=== PATIENT | male | born 1980 | race Caucasian/White ===

== ENCOUNTER 2021-11-09 17:02 | Emergency (ER) | payer OTHER, SELFPAY ==
[2021-11-09 17:16] VITALS: BP 127/82; PULSE 76; RESP 16; TEMP 36.5; O2SAT 96; BMI 32.9
--- NOTE | 2021-11-09 21:44 | ED_ITS ---
HPI - General Adult General Chief complaint: Back Pain/Injury Stated complaint: back/leg pain Time Seen by Provider: 11/09/21 21:44 Source: patient and translator interpreter Mode of arrival: ambulatory Limitations: no limitations History of Present Illness HPI narrative: 40-year-old male came in for evaluation of bilateral knee pain and burning. 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 Patient declined any fever chills. Patient also been complaining of a mild back pain, no urinary incontinence, no radiation of the pain to the lower extremities. Related Data Previous Rx's Medication Instructions Recorded bacitracin 500 unit/gram topical 1 appl topical TID #28 grams 11/09/21 ointment ibuprofen 600 mg tablet 600 mg PO TID PRN pain #20 tabs 11/09/21 Allergies Allergy/AdvReac Type Severity Reaction Status Date / Time No Known Allergies Allergy Verified 11/09/21 21:52 Review of Systems Review of Systems: All other systems are reviewed and are negative Constitutional: Reports as per HPI and Reports no additional constitutional complaints Eyes: Reports as per HPI and Reports no additional eye complaints Reports system reviewed and no additional complaints, except as documented Cardiovascular: Reports as per HPI and Reports no additional cardiovascular complaints Respiratory: Reports as per HPI and Reports no additional respiratory complaints Gastrointestinal: Reports as per HPI and Reports no additional gastrointestinal complaints Genitourinary: Reports no additional female genitourinary complaints Musculoskeletal: Reports no additional musculoskeletal complaints Skin/Breast: Reports system reviewed and no additional complaints, except as docu Psychiatric: Reports no additional psychiatric complaints Endocrine: Reports no additional endocrine complaints Hematologic/Lymphatic: Reports no additional hematologic/lymphatic complaints Allergic/Immunologic: Reports no additional allergic/immunologic complaints Reports system reviewed and no additional complaints, except as documented and Reports Abnormal speech present Physical Exam ED Vital Signs: Vital Signs - 24 hr 11/09/21 17:16 Temperature 97.7 F Pulse Rate 76 Respiratory Rate 16 Blood Pressure 127/82 Pulse Oximetry 96 Oxygen Delivery Method Room Air BMI result Body Mass Index 32.9 Vital signs have been reviewed as appeared to be correct. Blood pressure normal. Heart rate normal. Respiration rate normal. Temperature normal. Oxygen saturation normal. Appearance: Alert. Oriented X3. No acute distress. Head: Normal external exam. Normocephalic. Atraumatic. No Lopez signs noted. No raccoon eyes noted Eyes: PERRLA. EOMI. Conjunctiva and sclera normal. Eyelids normal. ENT: TM's Normal. Pharynx normal. Uvula midline. Moist mucous membranes. No trismus noted. No drooling noted. No muffled voice noted. Neck: Normal inspection. Neck supple. FROM. No adenopathy. Thyroid Normal. No meningeal signs. No neck mass noted. CVS: Normal heart rate and rhythm. Heart sound normal. No murmurs noted. Pulses normal throughout. Respiratory: No respiratory distress. Painless inspiration. Breath sounds normal. No wheezes/rales/rhonchi noted. Chest nontender. No accessory muscle u rigoberto noted or decreased air movement noted. Abdomen: Soft and nontender. Bowel sounds normal in all 4 quadrants. No distention noted. No organomegaly noted. No visible injury noted. Back: No CVA tenderness. Full range of motion noted. Skin: Skin warm and dry. Normal skin color. Normal skin turgor. No rashes/lesions/lacerations noted. Extremities: Bilateral superficial burn to both knees, no discharge, no fluctuation. Neuro: Oriented X 3. Cranial nerve exam: II-XII are grossly intact No motor deficit. No sensory deficit. Reflexes normal. Course Course Course Narrative: Assessment and plan. A bilateral superficial chemical eduardo on bilateral knees area, no blistering. As discussed with the patient apply bacitracin 3 times a day and use NSAIDs for pain. Discharge Plan Discharge Clinical Impression: Chemical burn Patient Disposition: Home, Self-Care Instructions: Chemical Skin Burn (ED) Prescriptions: New bacitracin 500 unit/gram ointment 1 appl topical TID Qty: 28 1RF ibuprofen 600 mg tablet 600 mg PO TID PRN (Reason: pain) Qty: 20 0RF Referrals: Physician,Unknown J [Primary Care Provider] - Stand Alone Forms: Work/School Release
[2021-11-09 22:47] VITALS: PULSE 78; RESP 18
--- NOTE | 2021-11-09 22:48 | PC.NURSE ---
bilateral lower extremity chemical eduardo present, bacitracin applied, covered with nonadhereant dressing. wrapped with kerlex
== END 2021-11-09 22:51 | disposition home or self-care (01) ==
PROVIDERS: Emergency Provider Emergency Medicine
DX: M54.50 Low back pain, unspecified (principal); M79.605 Pain in left leg; M79.604 Pain in right leg; Z79.899 Other long term (current) drug therapy
CPT/HCPCS: 99283; 99284

== ENCOUNTER 2024-06-07 20:08 | Emergency (ER) | payer SELFPAY ==
[2024-06-07 20:11] VITALS: BP 134/87; PULSE 107; RESP 20; TEMP 36.3; O2SAT 100; BMI 34.0
--- NOTE | 2024-06-07 20:14 | ED_ITS ---
HPI - General Adult General Chief complaint: Nausea/Vomiting/Diarrhea Stated complaint: vomiting Time Seen by Provider: 06/07/24 23:09 Source: patient, family and transport coordinator Mode of arrival: ambulatory Limitations: no limitations History of Present Illness ED Provider: BRIANA HPI narrative: 43 yo male with no PMH here with c/o abrupt onset abdominal cramps and n/v/d not feeling well. His son has the same illness. No recent travel or food exposures. Patient denies abx use. He cannot keep anything down. NO GIB symptoms reported. MD complaint: n/v/d Onset (ago): hour(s) (several) Location: abdomen Radiation: non-radiation Severity: moderate Quality: aching Pain Consistency: intermittent Relieving factors: none Exacerbating factors: eating Associated symptoms: loss of appetite, malaise and nausea/vomiting Treatments prior to arrival: none Related Data Previous Rx's ?Medication ?Instructions ?Recorded bacitracin 500 unit/gram topical 1 appl topical TID #28 grams 11/09/21 ointment ibuprofen 600 mg tablet 600 mg PO TID PRN pain #20 tabs 11/09/21 ondansetron 4 mg disintegrating 4 mg PO Q8H PRN nausea and 06/08/24 tablet vomiting #20 tabs Allergies Allergy/AdvReac Type Severity Reaction Status Date / Time No Known Allergies Allergy Verified 06/07/24 20:12 Review of Systems 2 Review of Systems: Constitutional : No Weight loss, No Fever, No Chills ENT/Mouth : No sore throat, No Rhinorrhea Eyes: No Swelling, No Redness Cardiovascular : No Chest Pain, No SOB, NoEdema Respiratory : No Cough, No Sputum, No Wheezing Gastrointestinal : Positive Nausea, Positive Vomiting, positive Diarrhea, positive abdominal Pain, No Hematochezia, No Melena Genitourinary : No Dysuria, No Urinary Frequency, No Hematuria, No Urgency Musculoskeletal : No joint pain, No Myalgias, No Joint Swelling Skin : No Skin Lesions, No rash Neuro : No Weakness, No Numbness, No Dizziness, No Headache Psych : No Anxiety/Panic, No Depression All other systems reviewed and are negative. [facility] Past Medical History Attestation statement: The following information was validated with the patient. Source: old records reviewed Medical History No pertinent past medical history Social History Social History (Updated 06/08/24 @ 00:17 by Leatha Ma DO) Patient Tobacco Use Status: Never used Tobacco Smoked in Last 30 Days: No Use of substances other than those prescribed or required for medical reasons: No Advance Directives: No Advance Directives Information Provided: No Physical Exam ED Vital Signs: Vital Signs - 24 hr 06/07/24 20:11 06/08/24 01:00 06/08/24 01:11 Temperature 97.3 F 98.1 F 98.1 F Pulse Rate 107 H 97 97 Respiratory Rate 20 16 16 Blood Pressure 134/87 116/58 L 116/58 L Pulse Oximetry 100 97 97 Oxygen Delivery Method Room Air Room Air Room Air BMI result Body Mass Index 34.0 Appearance: Alert. Oriented X3. No acute distress. Eyes: Pupils equal, round and reactive to light. ENT: Pharynx normal. Neck: Normal inspection. Neck supple. CVS: Normal heart rate and rhythm. Pulses normal. Respiratory: No respiratory distress. Breath sounds normal. Abdomen: Soft and very mild diffuse ttp no rebound or guarding Skin: Skin warm and dry. Normal skin color. Normal skin turgor. Extremities: No lower extremity edema. No calf ttp Neuro: Oriented X 3. No motor deficit. No sensory deficit. CN2-12 intact Course Course Course Narrative: RME: 43-year-old male presents to ED presents to the ED for vomiting abdominal pain diarrhea. Patient states his son history tenderness with normal varus and now he is having symptoms which began today. Labs Zofran ordered. Medications Administered Discontinued Medications Generic Name Dose Route Start Last Admin Trade Name Freq PRN Reason Stop Dose Admin Diphenhydramine HCl 25 mg 06/07/24 23:10 06/07/24 23:38 Diphenhydramine Hcl 50 Mg/Ml Vial IVPUSH 06/07/24 23:11 25 mg ONCE ONE Administration Lactated Ringer's 1,000 mls @ 999 mls/hr 06/07/24 23:10 06/08/24 01:00 Lr IV 06/08/24 00:10 Infused .Q1H1M ONE Infusion Ketorolac Tromethamine 15 mg 06/07/24 23:10 06/07/24 23:37 Ketorolac Tromethamine 15 Mg/Ml Vial IVPUSH 06/07/24 23:11 15 mg ONCE ONE Administration Metoclopramide HCl 10 mg 06/07/24 23:10 06/07/24 23:37 Metoclopramide Hcl 10 Mg/2 Ml Vial IVPUSH 06/07/24 23:11 10 mg ONCE ONE Administration Ondansetron HCl 4 mg 06/07/24 20:13 06/07/24 20:15 Ondansetron Odt 4 Mg Tab.Rapdis TRANSLINGU 06/07/24 20:14 4 mg ONCE ONE Administration Medical Decision Making Medical Decision Making MDM Narrative: 43 yo male with no PMH here with c/o n/v/d and abdominal cramps at this time will need basic labs, hydration has no localized ttp in abdomen to suggest appy or biliary colic. His son has similar illness so I suspect viral syndrome Differential Diagnosis Differential Diagnoses: The differential diagnosis associated with the presentation includes viral syndrome, dehydration Admission/Observation Consideration of admission/observation: Escalation of care including admission/observation considered tolerating PO stable for DC Lab Data [facility] Lab Attestation statement: I reviewed the patient's lab results. 06/07/24 20:31 06/07/24 20:31 Labs: Lab Results 06/07/24 Range/Units 20:31 WBC 14.2 H (4.8-10.8) X10*3/uL RBC 5.43 (4.60-5.80) X10*6/uL Hgb 15.6 (14.0-18.0) g/dl Hct 45.7 (42.0-52.0) % MCV 84.2 (80.0-98.0) fL MCH 28.7 (27.0-33.0) pg MCHC 34.1 (31.0-36.0) g/dl RDW 12.6 (11.0-16.0) % Plt Count 223 (160-400) X10*3/uL MPV 11.1 (9.4-12.4) fL Immature Gran % (Auto) 0.4 (0.0-0.4) % Neut % (Auto) 88.4 H (45-73) % Lymph % (Auto) 6.1 L (20-40) % Churchill % (Auto) 4.7 (2-11) % Eos % (Auto) 0.2 (0-4) % Baso % (Auto) 0.2 (0-2) % Lymph # (Auto) 0.9 L (1.2-4.9) X10*3/uL Churchill # (Auto) 0.7 (0.1-1.2) X10*3/uL Eos # (Auto) 0.0 (0.0-0.4) X10*3/uL Baso # (Auto) 0.0 (0.0-0.2) X10*3/uL Abs Immat Gran (auto) 0.06 H (0.00-0.03) X10*3/uL Absolute Neuts (auto) 12.5 H (2.0-8.3) x10*3/uL Absolute Nucleated RBC 0.000 (0.0-0.012) X10*3/uL Nucleated RBC % (auto) 0.0 (0.0-0.2) /100WBC Sodium 141 (135-145) mmol/L Potassium 4.7 (3.3-5.1) mmol/L Chloride 106 (96-108) mmol/L Carbon Dioxide 24 (22-29) mmol/L Anion Gap 16 (12-20) BUN 15 (9-16) mg/dL Creatinine 1.08 (0.5-1.4) mg/dL Estim Creat Clear Calc 103.8 Estimated GFR > 60 Random Glucose 134 H (60-115) mg/dL Calcium 9.2 (8.4-10.2) mg/dL Total Bilirubin 0.5 (0.0-1.0) mg/dL AST 36 (5-37) U/L ALT 54 H (0-40) U/L Alkaline Phosphatase 59 (39-117) U/L Total Protein 7.8 (6.5-8.0) g/dL Albumin 4.7 (3.5-5.0) g/dL Lipase 11 (8-78) U/L Independent Historian Clinical information obtained from an independent historian. History obtained from or confirmed by: Spouse Prescription Management I considered prescription management with: Other Discharge Plan Discharge Clinical Impression: Nausea vomiting and diarrhea Patient Disposition: Home, Self-Care Instructions: Acute Nausea and Vomiting (ED), Acute Diarrhea (ED) Additional Instructions: stay hydrated eat a bland diet bananas apple sauce rice and toast return for bloody stools fever severe pain unable to eat or drink Prescriptions: New ondansetron 4 mg tablet,disintegrating 4 mg PO Q8H PRN (Reason: nausea and vomiting) Qty: 20 0RF No Action bacitracin 500 unit/gram ointment 1 appl topical TID Qty: 28 1RF ibuprofen 600 mg tablet 600 mg PO TID PRN (Reason: pain) Qty: 20 0RF Stand Alone Forms: Work/School Release Interventions: ED Discharge Assessment Last Done: 06/08/24 01:11 Discharge Date/Time: 06/08/24 01:11 Print Language: Welsh
[2024-06-07] MEDS: Ondansetron ODT 4 MG TAB.RAPDIS TRANSLINGU (20:15)
[2024-06-07 20:39] LABS: MANUAL DIFF FLAG NO
[2024-06-07 20:42] LABS: Basophils Percent Auto 0.2 % (0-2); Eosinophils Percent Auto 0.2 % (0-4); Hematocrit 45.7 % (42.0-52.0); Hemoglobin 15.6 g/dl (14.0-18.0); Imm Gran Abs Auto 0.06 X10*3/uL (0.00-0.03); Imm Gran Pct Auto 0.4 % (0.0-0.4); Lymphocytes Absolute Auto 0.9 X10*3/uL (1.2-4.9); Lymphocytes Percent Auto 6.1 % (20-40); Mean Corpuscular HGB Conc 34.1 g/dl (31.0-36.0); Mean Corpuscular Hemoglobin 28.7 pg (27.0-33.0); Mean Corpuscular Volume 84.2 fL (80.0-98.0); Mean Platelet Volume 11.1 fL (9.4-12.4); Monocytes Absolute Auto 0.7 X10*3/uL (0.1-1.2); Monocytes Percent Auto 4.7 % (2-11); Neutrophils Absolute Auto 12.5 x10*3/uL (2.0-8.3); Neutrophils Percent Auto 88.4 % (45-73); Platelet Count 223 X10*3/uL (160-400); Red Blood Count 5.43 X10*6/uL (4.60-5.80); Red Cell Distribution Width 12.6 % (11.0-16.0); White Blood Count 14.2 X10*3/uL (4.8-10.8)
[2024-06-07 20:54] LABS: Alanine Aminotransferase 54 U/L (0-40); Albumin Level 4.7 g/dL (3.5-5.0); Alkaline Phosphatase 59 U/L (39-117); Anion Gap 16 (12-20); Aspartate Amino Transferase 36 U/L (5-37); Bilirubin Total 0.5 mg/dL (0.0-1.0); Blood Urea Nitrogen 15 mg/dL (9-16); Calcium 9.2 mg/dL (8.4-10.2); Carbon Dioxide 24 mmol/L (22-29); Chloride 106 mmol/L (96-108); Creatinine Clr Calc Pharmacy 103.8; Estimated Glomerular Filt Rate > 60; Glucose Random 134 mg/dL (60-115); Lipase 11 U/L (8-78); Potassium 4.7 mmol/L (3.3-5.1); Sodium 141 mmol/L (135-145); Total Protein 7.8 g/dL (6.5-8.0)
[2024-06-07] MEDS: Metoclopramide HCl 10 MG/2 ML VIAL IVPUSH (23:37)
[2024-06-07] MEDS: Ketorolac Tromethamine 15 MG/ML VIAL IVPUSH (23:37)
[2024-06-07] MEDS: Lactated Ringers 1,000 ML 999 ML IV (23:38)
[2024-06-07] MEDS: diphenhydrAMINE HCL 50 MG/ML VIAL 25 MG IVPUSH (23:38)
[2024-06-08 01:00] VITALS: BP 116/58; PULSE 97; RESP 16; TEMP 36.7; O2SAT 97
--- NOTE | 2024-06-08 01:01 | PC.NURSE ---
fluids complete pt reports relief of pain and nausea. was sleeping comfortably, respirations even and unlabored. pt attempting po challenge now. given crackers and yoana rhoda.
[2024-06-08 01:11] VITALS: BP 116/58; PULSE 97; RESP 16; TEMP 36.7; O2SAT 97
== END 2024-06-08 01:11 | disposition home or self-care (01) ==
PROVIDERS: Physician Assistant; Emergency Provider Emergency Medicine
DX: R11.2 Nausea with vomiting, unspecified (principal); R53.81 Other malaise; R19.7 Diarrhea, unspecified; R10.819 Abdominal tenderness, unspecified site; Z79.899 Other long term (current) drug therapy
CPT/HCPCS: 36415; 80053; 83690; 85025; 96365; 96375; 99284; J1200; J1885; J2765; J7120